=== PATIENT | female | born 1990 | race Caucasian/White ===

== ENCOUNTER 2018-04-12 10:29 | Day surgery (SDC) | payer OTHER ==
[2018-04-09 12:58] VITALS: BMI 48.9
--- NOTE | 2018-04-11 10:01 | HP ---
HISTORY AND PHYSICAL CHIEF COMPLAINT: Left hand pain and numbness. 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 It has worsened recently. She is having pain with gripping and grasping. She is having night symptoms. She has tried bracing in addition to injections and medications with partial temporary relief. PAST MEDICAL HISTORY: Negative. PAST SURGICAL HISTORY: Negative. CURRENT MEDICATIONS: Tylenol. FAMILY HISTORY: Significant for cancer. SOCIAL HISTORY: Negative for current tobacco or alcohol use. REVIEW OF SYSTEMS: Sixteen-point review of systems otherwise reviewed and is noncontributory. PHYSICAL EXAMINATION: On examination, the patient is approximately 5 feet 5 inches, 300 pounds of endomorphic habitus. HEENT exam is nonfocal. Neck is supple. She is nontender about the left shoulder and elbow. On examination of her left wrist, she has a positive Tinel's over the carpal canal. Carpal tunnel compression test is positive. Light touch is diminished in the left thumb, index and middle fingers. Abductor pollicis brevis strength is 5 minus over 5. No gross thenar wasting is noted. Previous EMG to left upper extremity showed evidence of carpal tunnel syndrome. IMPRESSION: Left carpal tunnel syndrome-symptomatic. RECOMMENDATIONS: I talked to the patient at length regarding her condition and treatment options. At this point, she opts to proceed with surgery. We will plan to proceed with a left carpal tunnel release. We will likely perform that utilizing local anesthetic and IV sedation. Risks and benefits were discussed at length in layman's terms. MMODL / IJN: [id number] /
[~2018-04-12 10:29] MED LIST: HYDROmorphone 0.5 MG/0.5 ML SYRINGE IVP PRN; LACTATED RINGERS 1,000 ML IV SCH; LIDOCAINE 1% 20 ML VIAL (10MG/ML) FOR IV START INTRADERMA PRN; ONDANSETRON 4 MG/2 ML VIAL IVP ONE
[2018-04-12 11:15] VITALS: TEMP 98.5
[2018-04-12] MEDS ORDERED: fentaNYL (PF) 50 MCG/ML 2 ML AMP ONE (11:56)
[2018-04-12] MEDS ORDERED: MIDAZOLAM 2 MG/2 ML VIAL ONE (11:56)
[2018-04-12] MEDS ORDERED: PROPOFOL 10 MG/ML 20 ML VIAL IV ONE (11:56)
[2018-04-12] MEDS ORDERED: LIDOCAINE 1% INJ 10MG/ML (20 ML MDV) ONE (11:56)
[2018-04-12] MEDS ORDERED: LIDOCAINE 2% (PF) 20 MG/ML 10 ML AMP SQ ONE (12:08)
--- NOTE | 2018-04-12 12:29 | P.OP ---
Date of Procedure: 04/12/18 Preoperative Diagnosis: Left carpal tunnel syndrome Postoperative Diagnosis: Same Procedure(s) Performed: Left carpal tunnel release Anesthesia: MAC, local Surgeon: Pollo Aguilar Estimated Blood Loss (ml): 2 Pathology: none sent Condition: stable Disposition: PACU Indications for Procedure: The patient's a 27-year-old female who presents with progressive left hand symptoms secondary to carpal tunnel syndrome despite conservative measures. A discussion of the risks and benefits of operative intervention versus continued conservative measures was made with the patient. She opted to proceed with surgery. Operative risks to include infection, neurovascular injury, recurrence of symptoms, possible development of reflex empathetic dystrophy and need for subsequent procedures was discussed. Informed consent was obtained. Operative Findings: As below Description of Procedure: The patient was brought to the operating room, and after induction of IV sedation the left upper extremity was prepped and draped in normal fashion. The tourniquet was inflated to 250 mmHg. The proposed incision site was outlined with a skin marker in line with the radial aspect the fourth ray extending from the volar wrist crease distally 2 and half centimeters. 8 mL of 2% plain lidocaine was injected into the proposed incision site. The skin was then incised sharply. Subcutaneous tissues were divided sharply. The superficial palmar fascia was identified and split in line with the skin incision. The transverse carpal ligament was identified and transected under direct visualization distally to level of the palmar fat pad. I felt there was adequate distal release. Proximally it was taken level the volar wrist crease. A plane above and below the transverse carpal ligament was then bluntly developed with tenotomies. The confluence of the distal forearmand the transverse carpal ligament was then transected under direct visualization with the tenotomy tines pointed in the ulnar direction. I felt there was adequate proximal release. Neural lysis was not performed. The wound is irrigated normal saline. The skin was reprepped with simple 3-0 nylon suture. A sterile dressing was applied. The tourniquet was deflated with approximately 15 minutes total tourniquet time. Blood loss was estimated 2 mL. No complications were incurred. Sponge and needle counts were correct at the end of the case.
[2018-04-12 12:54] VITALS: BP 108/50; PULSE 85; RESP 16
== END 2018-04-12 13:30 | disposition home or self-care (01) ==
LOC: OR 10:29
PROVIDERS: ATTEND Orthopaedic Surgery
DX: G56.02 Carpal tunnel syndrome, left upper limb (principal); Z88.0 Allergy status to penicillin; E66.01 Morbid (severe) obesity due to excess calories; Z79.891 Long term (current) use of opiate analgesic; Z68.42 Body mass index [BMI] 45.0-49.9, adult
CPT/HCPCS: 81025; 64721; J2250; J2001 ×2; J0690; J2405; J3010; J2704

== ENCOUNTER 2018-06-28 09:11 | Day surgery (SDC) | payer OTHER ==
[2018-06-25 14:30] VITALS: BMI 48.4
--- NOTE | 2018-06-27 12:57 | HP ---
HISTORY AND PHYSICAL CHIEF COMPLAINT: Right hand numbness. 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 She has had problems for quite some time. She notes pain with gripping and grasping along with at night. She has tried medications and bracing in the past. PAST MEDICAL HISTORY: Significant for bilateral carpal tunnel syndrome. PAST SURGICAL HISTORY: Significant for left carpal tunnel release. CURRENT MEDICATIONS: Tylenol. She has allergies to PENICILLIN. FAMILY HISTORY: Significant for hypertension. SOCIAL HISTORY: Negative for current tobacco or alcohol use. REVIEW OF SYSTEMS: A 16 point review of systems otherwise reviewed and is noncontributory. PHYSICAL EXAMINATION: On examination, the patient is approximately 5 foot 5, 300 pounds of endomorphic habitus. HEENT exam is nonfocal. NECK is supple. She is nontender about the right shoulder and elbow. On examination of the right wrist, she has a positive Tinel's of the carpal canal. Carpal tunnel compression test is positive. Abductor pollicis brevis strength is 5-5. Minimal thenar wasting is noted. IMPRESSION: 1. Symptomatic right carpal tunnel syndrome. 2. Increased body mass index. RECOMMENDATIONS: I talked to the patient regarding her condition and treatment options. At this point, she is quite symptomatic and opts to proceed with surgery. We will plan to proceed with right carpal tunnel release utilizing local anesthetic and IV sedation. We will likely perform an outpatient procedure. Risks and benefits were discussed at length in layman's terms. MMODL / IJN: [id number] /
[~2018-06-28 09:11] MED LIST changes: +DEXAMETHASONE SOD PHOSPHATE 10 MG/ML 1 ML VIAL IV ONE; -HYDROmorphone 0.5 MG/0.5 ML SYRINGE IVP PRN; +HYDROmorphone 1 MG/ML 1 ML SYRINGE IVP PRN; +MIDAZOLAM (PF) 2 MG/2 ML VIAL IV PRN; +fentaNYL (PF) 50 MCG/ML 2 ML AMP IV PRN
[2018-06-28 10:29] VITALS: TEMP 98.5
[2018-06-28] MEDS ORDERED: MIDAZOLAM 2 MG/2 ML VIAL ONE (10:58)
[2018-06-28] MEDS ORDERED: KETAMINE 10 MG/ML 20 ML VIAL ONE (10:58)
[2018-06-28] MEDS ORDERED: LIDOCAINE 1% INJ 10MG/ML (20 ML MDV) ONE (10:58)
[2018-06-28] MEDS ORDERED: PROPOFOL 10 MG/ML 20 ML VIAL IV ONE (10:58)
[2018-06-28] MEDS ORDERED: fentaNYL (PF) 50 MCG/ML 2 ML AMP ONE (10:58)
[2018-06-28] MEDS ORDERED: BUPIVACAINE (PF) 0.25% 30 ML VIAL SQ ONE ×2 (11:05)
--- NOTE | 2018-06-28 11:37 | P.OP ---
Date of Procedure: 06/28/18 Preoperative Diagnosis: Symptomatic right carpal tunnel syndrome Postoperative Diagnosis: Same Procedure(s) Performed: Right carpal tunnel release Anesthesia: MAC, local Surgeon: Pollo Aguilar Estimated Blood Loss (ml): 1 Pathology: none sent Condition: stable Disposition: PACU Indications for Procedure: The patient's a 27-year-old female who presents with progressive right hand pain and numbness secondary to carpal tunnel syndrome despite conservative measures. A discussion of the risks and benefits of operative intervention versus continued conservative measures was made with patient. She opted to proceed with surgery. Operative risks to include infection, neurovascular injury, development of blood clots, possible incomplete resolution of symptoms, possible recurrence of symptoms and need for subsequent procedures was discussed. Informed consent was obtained. Operative Findings: As below Description of Procedure: The patient was brought to the operating room, and after induction of IV sedation the right upper extremity was prepped and draped in normal fashion. The proposed incision site was outlined skin marker in line with the radial aspect the fourth ray extending from the volar wrist crease distally 2-1/2 cm. One quarter percent plain Marcaine was injected into the proposed incision site. 9 mL was utilized. The tourniquet was inflated to 250 mmHg. The skin incision was then made. The skin was incised sharply. Subcutaneous tissues were divided sharply the superficial palmar fascia was identified and split in line with the skin incision. The transverse carpal ligament was identified and transected under direct visualization distally to level the palmar fat pad. Proximal was taken level of the volar wrist crease. A plane above and below the transverse carpal ligament was then bluntly developed with tenotomies. The confluence of the distal forearm fascia and the transverse carpal ligament was then transected under direct visualization proximally with the tines pointed in the ulnar direction. I felt this was adequate proximal release. Neural lysis was not performed. The wound was irrigated with normal saline. Electrocautery was used for hemostasis. The skin was reapproximated with simple 3-0 nylon sutures. A sterile dressing was applied. The tourniquet was deflated with less than 15 minutes total tourniquet time. Patient was awoken from sedation and transferred to the recovery room in good condition. Blood loss was estimated 1 mL. No complications were incurred. Sponge and needle counts were correct at the end the case.
[2018-06-28 11:51] VITALS: RESP 16
[2018-06-28 12:41] VITALS: BP 128/78; PULSE 80
== END 2018-06-28 12:42 | disposition home or self-care (01) ==
LOC: OR 09:11
PROVIDERS: ATTEND Orthopaedic Surgery
DX: G56.01 Carpal tunnel syndrome, right upper limb (principal); E66.01 Morbid (severe) obesity due to excess calories; Z68.42 Body mass index [BMI] 45.0-49.9, adult; Z88.0 Allergy status to penicillin; Z79.899 Other long term (current) drug therapy
CPT/HCPCS: 64721; 81025; J2250; J1100; J2405; J2001; J3010; J2704; 64415

== ENCOUNTER 2023-06-05 19:40 | Inpatient (IN) | payer OTHER ==
--- NOTE | 2023-06-05 20:00 | ED ---
SOB HPI - General Chief Complaint: Shortness of Breath Stated Complaint: Pulmonary embolisms Time Seen by Provider: 06/05/23 19:43 Source: patient, EMS, RN notes reviewed Mode of arrival: EMS Limitations: no limitations - History of Present Illness Initial Comments: Patient is a 32-year-old female presenting to the ER via EMS transferred from [place] with a chief complaint of bilateral PEs. Patient was recently hospitalized for hypoxia and cough on 05/31/23. She left AMA after due to having to take care of her children. She has been recently treated with antibiotics for cough with no improvement. Patient was seen today at her PCPs office for follow- up and was found to be hypoxic stating in the low 90s to high 80s. Chest xray done at PCPs office was completed and patient was sent to ER based on results. Patient was sent to the ER and [place] for evaluation. Patient states that she was having right sided back pain, cough and shortness of breath with exertion. CTA obtained at [place] shows bilateral pulmonary embolisms. Patient received heparin bolus and drip was started for transfer to [facility]. Currently, patient is reporting right-sided back pain, cough and mild shortness of breath. Patient denies control, history of DVTs, smoking. En route EMS states she was standing around 94 on 3 L. - Related Data Previous Rx's Medication Instructions Recorded Acetaminophen with Codeine 1 tab PO Q6H PRN 4 Days #16 tab 04/12/18 [Tylenol w/codeine #3] Acetaminophen-Codeine 300-30mg 1 tab PO Q6H PRN 3 Days #12 tablet 06/28/18 [Tylenol w/codeine #3] Allergies Allergy/AdvReac Type Severity Reaction Status Date / Time Penicillins Allergy Rash/Hives Verified 06/28/18 10:24 Review of Systems ROS Statement: Those systems with pertinent positive or pertinent negative responses have been documented in the HPI. ROS Other: All systems not noted in ROS Statement are negative. Past Medical History Past Medical History: Skin Disorder Additional Past Medical History / Comment(s): PCOS-IRREGULAR MENSES, darker pigment in areas of skin, bilat PE History of Any Multi-Drug Resistant Organisms: None Reported Past Surgical History: Orthopedic Surgery Additional Past Surgical History / Comment(s): left carpal tunnel 03/2018 Past Anesthesia/Blood Transfusion Reactions: No Reported Reaction Additional Past Anesthesia/Blood Transfusion Reaction / Comment(s): NO PRIOR SURGICAL HX Past Psychological History: No Psychological Hx Reported Past Alcohol Use History: None Reported Past Drug Use History: None Reported - Past Family History Mother Family Medical History: No Reported History General Exam Limitations: no limitations General appearance: alert, in no apparent distress Head exam: Present: atraumatic, normocephalic, normal inspection Respiratory exam: Present: wheezes (Bilaterally), rhonchi (Bilaterally) Cardiovascular Exam: Present: regular rate, normal rhythm, normal heart sounds. Absent: systolic murmur, diastolic murmur, rubs, gallop, clicks Extremities exam: Present: normal inspection, full ROM, normal capillary refill. Absent: tenderness, pedal edema, joint swelling, calf tenderness Neurological exam: Present: alert, oriented X3, CN II-XII intact Psychiatric exam: Present: normal affect, normal mood Skin exam: Present: warm, dry, intact, normal color. Absent: rash Course Vital Signs 06/05/23 19:47 Temperature 98.1 F Pulse Rate 99 Respiratory 16 Rate Blood Pressure 187/103 O2 Sat by Pulse 94 L Oximetry Medical Decision Making - Medical Decision Making Was pt. sent in by a medical professional or institution (, PA, CUSTODY ASSISTANT, urgent care, hospital, or [facility]...) When possible be specific @ -[facility] Did you speak to anyone other than the patient for history (EMS, parent, family, police, friend...)? What history was obtained from this source @ -EMS and family Did you review nursing and triage notes (agree or disagree)? Why? @ -I reviewed and agree with nursing and triage notes Were old charts reviewed (outside hosp., previous admission, EMS record, old EKG, old radiological studies, urgent care reports/EKG's, [facility] records)? Report findings @ -Yes, I reviewed charts from [facility]. CTA of significant for bilateral pulmonary embolisms and multiple bilateral opacities. Patient received heparin bolus and started on heparin drip for transfer. Differential Diagnosis (chest pain, altered mental status, abdominal pain women, abdominal pain men, vaginal bleeding, weakness, fever, dyspnea, syncope, headache, dizziness, GI bleed, back pain, seizure, CVA, palpatations, mental health, musculoskeletal)? @ -Differential Dyspnea: Coronary syndrome, arrhythmia, tamponade, asthma, COPD, pulmonary embolism, pneumonia, pneumothorax, pulmonary effusion, anaphylaxis, diabetic ketoacidosis, flailed chest, pulmonary contusion, diaphragmatic rupture, anemia, neuromuscular, this is not meant to be an all- inclusive list. le EKG interpreted by me (3pts min.). @ -As above X-rays interpreted by me (1pt min.). @ -None done CT interpreted by me (1pt min.). @ -None done U/S interpreted by me (1pt. min.). @ -None done What testing was considered but not performed or refused? (CT, X-rays, U/S, labs)? Why? @ -None What meds were considered but not given or refused? Why? @ -None Did you discuss the management of the patient with other professionals (professionals i.e. , PA, CUSTODY ASSISTANT, lab, RT, psych nurse, 7th grade social studies teacher, event marketing intern, teacher, disability insurance hearing officer, housing case manager)? Give summary @ -Yes, I discussed this case with Gilson Woods from [facility] for admission. Was smoking cessation discussed for >3mins.? @ -No Was critical care preformed (if so, how long)? @ -No Were there social determinants of health that impacted care today? How? (Homelessness, low income, unemployed, alcoholism, drug addiction, tr ansportation, low edu. Level, literacy, decrease access to med. care, detention, rehab)? @ -No Was there de-escalation of care discussed even if they declined (Discuss DNR or withdrawal of care, Hospice)? DNR status @ -No What co-morbidities impacted this encounter? (DM, HTN, Smoking, COPD, CAD, Cancer, CVA, ARF, Chemo, Hep., AIDS, mental health diagnosis, sleep apnea, morbid obesity)? @ -morbid obesity and diabetes mellitus Was patient admitted / discharged? Hospital course, mention meds given and route, prescriptions, significant lab abnormalities, going to OR and other pertinent info. @ -Admitted. Patient was transferred from [facility] with complaint of bilateral pulmonary embolisms. Patient was admitted for hypoxia and severe cough on 05/31/23. Patient left AMA the next day due to personal reasons. Patient's follow-up to primary care physician was today and chest x-ray obtained in the office was worrisome so patient was sent to [place] ER fro evaluation. CTA taken at [place] was significant for bilateral pulmonary embolisms and multiple opacities. Patient received heparin bolus prior to transfer and started on heparin drip for transfer. Upon examination, patient is satting 94% on 3 L and BP was 187/103. Auscultation of lungs was significant for bilateral wheezing and rhonchi. Patient reports right sided back pain that increases with exertion. Upon arrival here patient was restarted on heparin drip and given 20mg of labetalol for BP control. I spoke with [facility] for admission and consulted pulmonary. Patient will be admitted for further care. Undiagnosed new problem with uncertain prognosis? @ -Yes Drug Therapy requiring intensive monitoring for toxicity (Heparin, Nitro, Insulin, Cardizem)? @ -Yes Were any procedures done? @ -No Diagnosis/symptom? @ -Bilateral pulmonary embolism Acute, or Chronic, or Acute on Chronic? @ -Acute Uncomplicated (without systemic symptoms) or Complicated (systemic symptoms)? @ -Complicated Side effects of treatment? @ -No Exacerbation, Progression, or Severe Exacerbation? @ -No Poses a threat to life or bodily function? How? (Chest pain, [place], [place], pneumonia, PE, COPD, DKA, ARF, appy, cholecystitis, CVA, Diverticulitis, Homicidal, Suicidal, threat to staff... and all critical care pts) @ -Yes, pulmonary embolism can be life threatening. Disposition Clinical Impression: Pulmonary embolism Disposition: ADMITTED IP TO THIS HOSP Condition: Stable Referrals: Eduard Kinsey MD [Primary Care Provider] - 1-2 days Time of Disposition: 20:51
[2023-06-05] MEDS ORDERED: HEPARIN SODIUM 1,000 UN/ML (10ML VL) IV PRN (20:10)
[2023-06-05] MEDS ORDERED: LABETALOL 5 MG/ML VIAL MDV IVP STA (20:12)
[2023-06-05] MEDS ORDERED: HYDROmorphone 0.5 MG/0.5 ML SYRINGE IVP PRN (20:24)
[2023-06-05] MEDS ORDERED: NALOXONE 0.4 MG/ML 1 ML VIAL IV PRN (20:24)
[2023-06-05] MEDS ORDERED: ONDANSETRON 4 MG/2 ML VIAL IVP PRN (20:24)
[2023-06-05] MEDS: SODIUM CHLORIDE 0.9% 1,000 ML IV SCH (20:52)
[2023-06-05] MEDS: HEPARIN SOD,PORK IN 0.45% NACL 25,000 UNIT in 0.45% NACL 1 250ML.BAG IV SCH (20:53)
[2023-06-05 21:14] LABS: INR 1.1 (<1.2); Prothrombin Time 11.6 sec (10.0-12.5)
--- NOTE | 2023-06-06 03:12 | P.CNPUL ---
History of Present Illness Consult date: 06/06/23 Requesting physician: Rukhsana Franco Reason for consult: pulmonary embolism Chief complaint: shortness of breath and right-sided back pain History of present illness: I am seeing this patient in consultation today 06/06/2023 in the emergency room after the patient was found to have bilateral pulmonary emboli at outside facility and transferred for treatment. Patient is a 32-year-old white female with limited past medical history. She is morbidly obese. Denies any previous personal history of blood clots Only familial history was her grandfather who may have had a DVT. She does not take any oral contraceptives. She does not smoke. No recent trauma, surgery, or prolonged travel. No known malignancy. She is fairly active, she has five children. States that she is not currently . Reports that the shortness of breath started approximately 2 weeks ago. It is worse with exertion or lying flat. She also admits right pleurtic back pain and left leg "cramping". Left foot may have been swollen. She does report a minimally productive cough and low grade fevers. Denies hemoptysis. She did go to a urgent care clinic on May 27, and was diagnosed with acute bronchitis. she was also seen multiple times in the emergency room at outside facility for shortness of breath. Yesterday, she was following up with her primary care provider, was found to be hypoxic, and she was sent back to the emergency room. A CT angio of the chest demonstrated multiple bilateral segmental and subsegmental pulmonary emboli. There were also multiple bilateral pulmonary opacities with lower lobe predominance concerning for possible infarcts/christie hump sign or atelectasis. No CT evidence of right heart strain. BNP not elevated. CBC done at outside facility showed a white count of 16.2, hem oglobin 14.6, hematocrit 45.2, platelets 290. BMP shows sodium 138, potassium 3.5, chloride 101, serum bicarb 25, BUN 15, creatinine 0.8, glucose 94. Patient is currently lying in bed, on 4 L per nasal cannula, in no acute distress while at rest. High-intensity heparin is infusing per protocol. No sign of hemodynamic compromise. Heart rhythm appears normal sinus on bedside monitor with a rate of 70 bpm. Blood pressure is normotensive. Patient will be admitted to the cardiac stepdown unit. Review of Systems REVIEW OF SYSTEMS: CONSTITUTIONAL: Denies any recent significant weight loss or weight gain. EYES: Denies change in vision. EARS, NOSE, MOUTH, THROAT: Denies headaches, denies sore throat. CARDIOVASCULAR: Denies chest pain, palpitations or syncopal episodes. RESPIRATORY: see HPI GASTROINTESTINAL: Denies change in appetite, abdominal pain, nausea and vomiting, or diarrhea GENITOURINARY: Denies hematuria, denies infections. MUSKULOSKELETAL: admits left lower extremity cramping and foot swelling. INTEGUMENTARY: Denies rash, denies eczema. NEUROLOGICAL: Denies recent memory loss, no recent seizure activity. PSYCHIATRIC: Denies anxiety, denies depression. HEMATOLOGIC/LYMPHATIC: Denies anemia, denies enlarged lymph node Past Medical History Past Medical History: Skin Disorder Additional Past Medical History / Comment(s): PCOS-IRREGULAR MENSES, darker pigment in areas of skin, bilat PE History of Any Multi-Drug Resistant Organisms: None Reported Past Surgical History: Orthopedic Surgery Additional Past Surgical History / Comment(s): left carpal tunnel 03/2018 Past Anesthesia/Blood Transfusion Reactions: No Reported Reaction Additional Past Anesthesia/Blood Transfusion Reaction / Comment(s): NO PRIOR SURGICAL HX Past Psychological History: No Psychological Hx Reported Past Alcohol Use History: None Reported Past Drug Use History: None Reported - Past Family History Mother Family Medical History: No Reported History Medications and Allergies Home Medications Medication Instructions Recorded Confirmed Type Albuterol Inhaler [Ventolin Hfa 1 - 2 puff INHALATION RT-Q6H PRN 06/05/23 06/05/23 History Inhaler] Albuterol Nebulized [Ventolin 2.5 mg INHALATION RT-TID 06/05/23 06/05/23 History Nebulized] Benzonatate [Tessalon Perles] 100 - 200 mg PO TID PRN 06/05/23 06/05/23 History guaiFENesin [Mucinex] 600 mg PO Q12H PRN 06/05/23 06/05/23 History methylPREDNISolone Dose Pack See Taper PO DIRECTED 06/05/23 06/05/23 History [Medrol Dose Pack] Allergies Allergy/AdvReac Type Severity Reaction Status Date / Time azithromycin Allergy rash, hives Verified 06/05/23 23:54 Penicillins Allergy Rash/Hives Verified 06/05/23 23:54 Physical Exam Vitals: Vital Signs Temp Pulse Resp BP Pulse Ox 06/06/23 00:20 71 16 136/85 94 L 06/05/23 23:00 77 16 145/76 94 L 06/05/23 22:00 80 16 165/90 94 L 06/05/23 20:50 73 16 157/87 94 L 06/05/23 19:47 98.1 F 99 16 187/103 94 L Intake and Output 06/05/23 06/05/23 06/06/23 14:59 22:59 06:59 Other: Weight 151.046 kg GENERAL EXAM: Alert, morbidly obese 32-year-old white female , comfortable in no apparent distress. HEAD: Normocephalic and atraumatic EYES: Normal reaction of pupils, equal size. NOSE: Clear with pink turbinates. THROAT: No erythema or exudates. NECK: No masses, no JVD. CHEST: No chest wall deformity. LUNGS: Equal air entry with no crackles, wheeze, rhonchi or dullness. on 4 L/m nasal cannula. No conversational dyspnea or accessory muscle use while at rest CVS: S1 and S2 normal with no audible murmur, regular rhythm. No extra heart sounds ABDOMEN: No hepatosplenomegaly, active bowel sounds, no guarding or rigidity. SPINE: No scoliosis or deformity SKIN: No rashes CENTRAL NERVOUS SYSTEM: No focal deficits, tone is normal in all 4 extremities. EXTREMITIES: There is no peripheral edema, clubbing, or cyanosis. Peripheral pulses are intact. Results - Laboratory Findings PT/INR, D-dimer PT 11.6 sec (10.0-12.5) 06/05/23 20:46 INR 1.1 (<1.2) 06/05/23 20:46 - Diagnostic Findings CT scan - chest: image reviewed Assessment and Plan Assessment: Bilateral acute segmental and subsegmental pulmonary emboli, first occurrence, non-provoked, no CT evidence of right-sided heart strain. On chest CTA, there were multiple bilateral opacities with lower lobe predominance concerning for possible pulmonary infarcts/christie hump sign. Acute hypoxemic respiratory failure, secondary to above Hypertension Morbid obesity, with a BMI of 53.7 kg/m plan: Patient's medications, labs, chest CTA from outside facility were reviewed Continue supplemental oxygen, currently on 4 L/m nasal cannula Currently, on high intensity heparin per protocol and will likely transition to DOAC in the morning. Will need anticoagulation for at least 3-[address] evidence of right-sided heart strain or hemodynamic compromise Obtain venous doppler of the lower extremities We will continue to follow I have personally seen and examined the patient, performed the documentation and the assessment and plan as written. Number of minutes spent on the visit:20 Time with Patient: Greater than 30
[2023-06-06 04:04] LABS: Basophils % (A) 0 %; Eosinophils % (A) 0 %; HCT 43.7 % (34.0-46.0); HGB 14.1 gm/dL (11.4-16.0); Lymphocytes % (A) 20 %; MCH 26.1 pg (25.0-35.0); MCHC 32.4 g/dL (31.0-37.0); MCV 80.6 fL (80.0-100.0); Mean Platelet Volume 8.3; Monocytes # (A) 0.8 k/uL (0-1.0); Monocytes % (A) 5 %; Neutrophils # (A) 11.1 k/uL (1.3-7.7); Neutrophils % (A) 73 %; Platelet Count 297 k/uL (150-450); RBC 5.42 m/uL (3.80-5.40); RDW 13.8 % (11.5-15.5); WBC 15.3 k/uL (3.8-10.6)
[2023-06-06] MEDS: HEPARIN SOD,PORK IN 0.45% NACL 25,000 UNIT in 0.45% NACL 1 250ML.BAG IV SCH ×2 (06:34→15:36)
[2023-06-06 06:35] LABS: African American GFR (CKD) >90 (>60 ml/min/1.73 sqM); Anion Gap 10 mmol/L; Blood Urea Nitrogen 14 mg/dL (7-17); Carbon Dioxide 25 mmol/L (22-30); Chloride 104 mmol/L (98-107); Glucose 120 mg/dL (74-99); Non-African American GFR(CKD) >90 (>60 ml/min/1.73 sqM); Potassium 4.1 mmol/L (3.5-5.1); Sodium 139 mmol/L (137-145)
[2023-06-06] MEDS ORDERED: ALBUTEROL HFA INHALER INHALATION PRN (08:58)
[2023-06-06] MEDS ORDERED: guaiFENesin 600 MG TABLET.ER PO PRN (08:58)
[2023-06-06] MEDS ORDERED: hydrALAZINE HCL 20 MG/ML 1 ML VIAL IVP PRN (08:59)
--- NOTE | 2023-06-06 09:11 | US ---
EXAMINATION TYPE: US venous doppler duplex LE LT DATE OF EXAM: 06/06/2023 8:51 AM COMPARISON: NONE CLINICAL INDICATION: Female, 32 years old with history of LLE pain edema; Pain and edema in left leg x a couple days. PE. Patient is on heparin. SIDE PERFORMED: Left TECHNIQUE: The lower extremity deep venous system is examined utilizing real time linear array sonog brynn with graded compression, doppler sonography and color-flow sonography. VESSELS IMAGED: Deep Femoral Vein Greater Saphenous Vein * Femoral Vein Popliteal Vein Small Saphenous Vein * Proximal Calf Veins (* superficial vessels) Stogie Packer notes:Extremely limited exam due to patient body habitus and edema. Additional imaging of left femoral vein and deep femoral vein performed at end of exam when patient turned on right side for better visibility of these particular vessels. Left Leg: Positive for DVT. Internal echoes seen within popliteal vein and prox calf veins. Color flow not seen at these segments. These veins do not appear to compress. IMPRESSION: There appears to be occlusive DVT (suggesting acute thrombosis) involving the popliteal v ein and upper calf veins in the left lower extremity. Clinically correlate.
[2023-06-06] MEDS: amLODIPine 5 MG TAB PO SCH (09:25)
[2023-06-06] MEDS: SODIUM CHLORIDE 0.9% 1,000 ML IV SCH (11:38)
[2023-06-06] MEDS: ALBUTEROL NEBULIZED 2.5 MG/3 ML INHALATION SCH ×2 (12:41→20:53)
--- NOTE | 2023-06-06 13:18 | P.HPIM ---
History of Present Illness H&P Date: 06/06/23 History of present illness; patient is a 32-year-old lady with past medical history significant for hypertension who presented to the ER as a transfer from [facility] for evaluation for bilateral PE. Patient was admitted in the hospital recently for cough and shortness of breath, but left AMA because of family issues. Patient was discharged on antibiotics but was having no improvement. Patient stated that shortness of breath is going on for the last 2 weeks and is present exertion and at rest. Denied any chest pain. There was no complain of palpitation. Patient also complaining of right-sided back pain. Patient also stated that she did notice that her left leg was swollen Patient went to her PCP office where she was found to be saturating in the low 90s and high 80s and was told to come to the ER. Patient was sent from [facility]. A CT angio of the chest demonstrated multiple bilateral segmental and subsegmental pulmonary emboli. There were also multiple bilateral pulmonary opacities with lower lobe predominance concerning for possible infarcts/christie hump sign or atelectasis. No CT evidence of right heart strain. BNP not elevated. Patient was started on pharmacy dose heparin and was transferred to [facility] Initial lab work done in the ER showed WBC 15.3, hemoglobin 14.1, platelet count 297, sodium 139, potassium 4.1, BUNs 14, creatinine 0.63, glucose 120, troponin 0.012 Patient was admitted to medicine service REVIEW OF SYSTEMS: CONSTITUTIONAL: No fever, no malaise, no fatigue. HEENT: No recent visual problems or hearing problems. Denied any sore throat. CARDIOVASCULAR: As mentioned above PULMONARY: As mentioned above GASTROINTESTINAL: No diarrhea, no nausea, no vomiting, no abdominal pain. NEUROLOGICAL: No headaches, no weakness, no numbness. HEMATOLOGICAL: Denies any bleeding or petechiae. GENITOURINARY: Denies any burning micturition, frequency, or urgency. MUSCULOSKELETAL/RHEUMATOLOGICAL: Denies any joint pain, swelling, or any muscle pain. ENDOCRINE: Denies any polyuria or polydipsia. The rest of the 14-point review of systems is negative. PHYSICAL EXAMINATION: GENERAL: The patient is alert and oriented x3, not in any acute distress. Morbidly obese HEENT: Pupils are round and equally reacting to light. EOMI. No scleral icterus. No conjunctival pallor. Normocephalic, atraumatic. No pharyngeal erythema. No thyromegaly. CARDIOVASCULAR: S1 and S2 present. No murmurs, rubs, or gallops. PULMONARY: Diminished breath sounds at bases bilaterally, no wheezing or crackles. ABDOMEN: Soft, nontender, nondistended, normoactive bowel sounds. No palpable organomegaly. MUSCULOSKELETAL: No joint swelling or deformity. EXTREMITIES: No cyanosis, clubbing, or pedal edema. NEUROLOGICAL: Gross neurological examination did not reveal any focal deficits. SKIN: No rashes. Assessment and plan Acute bilateral PE Bilateral pulmonary infarct Left lower extremity DVT Acute hypoxic respiratory failure Hypertension Morbid obesity Monitor vital signs Monitor CBC Monitor CMP Continue telemetry monitoring Encourage use of I-S Continue breathing treatments Continue pharmacy dose heparin Start patient Norvasc 5 mg daily for elevated blood pressure Ordered 2-D echo Ordering ultrasound of lower extremities Consult pulmonology Consult hematology oncology Labs and medication were reviewed.. Continue same treatment. Continue with symptomatic treatment. Resume home medication. Monitor labs and vitals. DVT and GI prophylaxis. Further recommendations as per clinical course of the patient Dictation was produced using [employer] dictation software. please excuse any grammatical, word or spelling errors. Past Medical History Past Medical History: Skin Disorder Additional Past Medical History / Comment(s): PCOS-IRREGULAR MENSES, darker pigment in areas of skin, bilat PE History of Any Multi-Drug Resistant Organisms: None Reported Past Surgical History: Orthopedic Surgery Additional Past Surgical History / Comment(s): left carpal tunnel 03/2018 Past Anesthesia/Blood Transfusion Reactions: No Reported Reaction Additional Past Anesthesia/Blood Transfusion Reaction / Comment(s): NO PRIOR SURGICAL HX Past Psychological History: No Psychological Hx Reported Past Alcohol Use History: None Reported Past Drug Use History: None Reported - Past Family History Mother Family Medical History: No Reported History Medications and Allergies Home Medications Medication Instructions Recorded Confirmed Type Albuterol Inhaler [Ventolin Hfa 1 - 2 puff INHALATION RT-Q6H PRN 06/05/23 06/05/23 History Inhaler] Albuterol Nebulized [Ventolin 2.5 mg INHALATION RT-TID 06/05/23 06/05/23 History Nebulized] Benzonatate [Tessalon Perles] 100 - 200 mg PO TID PRN 06/05/23 06/05/23 History guaiFENesin [Mucinex] 600 mg PO Q12H PRN 06/05/23 06/05/23 History methylPREDNISolone Dose Pack See Taper PO DIRECTED 06/05/23 06/05/23 History [Medrol Dose Pack] Allergies Allergy/AdvReac Type Severity Reaction Status Date / Time azithromycin Allergy rash, hives Verified 06/05/23 23:54 Penicillins Allergy Rash/Hives Verified 06/05/23 23:54 Physical Exam Vitals: Vital Signs Temp Pulse Resp BP Pulse Ox 06/06/23 07:27 77 20 172/102 94 L 06/06/23 06:36 97.8 F 79 16 161/86 95 06/06/23 04:18 68 14 169/97 94 L 06/06/23 02:52 80 164/94 94 L 06/06/23 00:20 71 16 136/85 94 L 06/05/23 23:00 77 16 145/76 94 L 06/05/23 22:00 80 16 165/90 94 L 06/05/23 20:50 73 16 157/87 94 L 06/05/23 19:47 98.1 F 99 16 187/103 94 L Intake and Output 06/05/23 06/06/23 06/06/23 22:59 06:59 14:59 Intake Total 222.717 Balance 222.717 Intake: Intake, IV Titration 222.717 Amount Heparin Sod,Pork in 0.45% 222.717 NaCl 25,000 unit In 0.45 % NaCl 1 250ml.bag @ 15. 227 UNITS/KG/HR 23 mls/hr IV .[id number] [facility] Rx#: [id number] Other: Weight 151.046 kg Results CBC & Chem 7: 06/06/23 02:47 06/06/23 02:43 Labs: Abnormal Lab Results - Last 24 Hours (Table) 06/06/23 06/06/23 06/06/23 Range/Units 02:43 02:47 02:47 WBC 15.3 H (3.8-10.6) k/uL RBC 5.42 H (3.80-5.40) m/uL Neutrophils # 11.1 H (1.3-7.7) k/uL APTT 74.3 H (22.0-30.0) sec Glucose 120 H (74-99) mg/dL
--- NOTE | 2023-06-06 15:16 | US ---
EXAMINATION TYPE: US venous doppler duplex LE RT DATE OF EXAM: 06/06/2023 1:59 PM COMPARISON: NONE CLINICAL INDICATION: Female, 32 years old with history of Matthew PE, LLE DVT, baseline; PE, DVT left leg , no issues with right leg SIDE PERFORMED: right TECHNIQUE: The lower extremity deep venous system is examined utilizing real time linear array sonog brynn with graded compression, doppler sonography and color-flow sonography. VESSELS IMAGED: Common Femoral Vein Deep Femoral Vein Greater Saphenous Vein * Femoral Vein Popliteal Vein Small Saphenous Vein * Proximal Calf Veins (* superficial vessels) Right Leg: Managing Consultant notes: No evidence of DVT as visualized. Superficial thrombus right small saph enous vein. Technical limitations due to patient's body habitus IMPRESSION: 1. Exam positive for SVT involving the small saphenous vein. 2. No evidence for DVT within the right lower extremity imaged from the groin to the upper calf.
--- NOTE | 2023-06-06 16:05 | P.CONS ---
History of Present Illness - Reason for Consult Consult date: 06/06/23 Bilateral PE, left lower extremity DVT - History of Present Illness The patient is a 32-year-old white female, with presented to an outside hospital, with complains of shortness of breath over the past 7-9 days. The patient states that symptoms in this regard had been progressive over that time to where she was having difficulty with even walking short distances inside the house. She was found to have bilateral PE, and was transferred here for further care. She was started on IV heparin and reports improvement in her symptoms. Left lower extremity Dopplers showed DVT involving the popliteal and upper calf veins The patient denied any prior history of arterial or venous ecchymosis. She states that a grandparent has a history of blood clots. She denied any surgery, hospitalization, trauma, or prolonged immobility in the prior 3-4 months. She is not on any hormonal contraception does not use any hormone supplements. She denies any chronic inflammatory condition, or any significant steroid use. She has never been , but has 5 adopted children. Apparently she may have PCO S. The patient is morbidly obese, with states that she has a normal activity level prior to the onset of her current symptoms. Review of Systems Constitutional: Reports weakness Eyes: denies blurred vision, denies pain Ears: deny: decreased hearing, ear discharge, earache, tinnitus Ears, nose, mouth and throat: Denies headache, Denies sore throat Cardiovascular: Reports shortness of breath Respiratory: Reports dyspnea Gastrointestinal: Denies abdominal pain, Denies diarrhea, Denies nausea, Denies vomiting Genitourinary: Denies dysuria, Denies hematuria Menstruation: Reports cycle variable (cycles very irregular and infrequent.) Musculoskeletal: Reports as per HPI (Left lower extremity pain and cramping) Integumentary: Denies pruritus, Denies rash Neurological: Denies numbness, Denies weakness Psychiatric: Denies anxiety, Denies depression Endocrine: Reports as per HPI Hematologic/Lymphatic: Reports as per HPI Past Medical History Past Medical History: Skin Disorder Additional Past Medical History / Comment(s): PCOS-IRREGULAR MENSES, darker pigment in areas of skin, bilat PE History of Any Multi-Drug Resistant Organisms: None Reported Past Surgical History: Orthopedic Surgery Additional Past Surgical History / Comment(s): left and right carpal tunnel 03/2018 Past Anesthesia/Blood Transfusion Reactions: No Reported Reaction Additional Past Anesthesia/Blood Transfusion Reaction / Comm: NO PRIOR SURGICAL HX Past Psychological History: No Psychological Hx Reported Smoking Status: Never smoker Past Alcohol Use History: None Reported Past Drug Use History: None Reported - Past Family History Mother Family Medical History: No Reported History Medications and Allergies Home Medications Medication Instructions Recorded Confirmed Type Albuterol Inhaler [Ventolin Hfa 1 - 2 puff INHALATION RT-Q6H PRN 06/05/23 History Inhaler] Albuterol Nebulized [Ventolin 2.5 mg INHALATION RT-TID 06/05/23 06/05/23 History Nebulized] Benzonatate [Tessalon Perles] 100 - 200 mg PO TID PRN 06/05/23 06/05/23 History guaiFENesin [Mucinex] 600 mg PO Q12H PRN 06/05/23 06/05/23 History methylPREDNISolone Dose Pack See Taper PO DIRECTED 06/05/23 06/05/23 History [Medrol Dose Pack] Allergies Allergy/AdvReac Type Severity Reaction Status Date / Time azithromycin Allergy rash, hives Verified 06/05/23 23:54 Penicillins Allergy Rash/Hives Verified 06/05/23 23:54 Physical Exam Vitals: Vital Signs Temp Pulse Pulse Resp BP BP Pulse Ox 06/06/23 15:53 97.8 F 83 20 142/86 95 06/06/23 12:53 90 06/06/23 12:44 80 06/06/23 07:27 77 20 172/102 94 L 06/06/23 06:36 97.8 F 79 16 161/86 95 06/06/23 04:18 68 14 169/97 94 L 06/06/23 02:52 80 164/94 94 L 06/06/23 00:20 71 16 136/85 94 L 06/05/23 23:00 77 16 145/76 94 L 06/05/23 22:00 80 16 165/90 94 L 06/05/23 20:50 73 16 157/87 94 L 06/05/23 19:47 98.1 F 99 16 187/103 94 L Intake and Output 06/06/23 06/06/23 06/06/23 06:59 14:59 22:59 Intake Total 222.717 207.767 Balance 222.717 207.767 Intake: Intake, IV Titration 222.717 207.767 Amount Heparin Sod,Pork in 0.45% 222.717 207.767 NaCl 25,000 unit In 0.45 % NaCl 1 250ml.bag @ 15. 227 UNITS/KG/HR 23 mls/hr IV .[id number] [facility] Rx#: [id number] Other: Weight 151.046 kg - Constitutional General appearance: morbidly obese, no acute distress - EENT Eyes: EOMI, PERRLA ENT: hearing grossly normal, normal oropharynx - Neck Neck: no lymphadenopathy Thyroid: bilateral: normal size - Respiratory Respiratory: bilateral: CTA - Cardiovascular Rhythm: regular Heart sounds: normal: S1, S2 - Gastrointestinal General gastrointestinal: normal bowel sounds, soft - Integumentary Integumentary: normal - Neurologic Neurologic: CNII-XII intact - Musculoskeletal Musculoskeletal: generalized weakness, strength equal bilaterally - Psychiatric Psychiatric: A&O x's 3, appropriate affect Results CBC & Chem 7: 06/06/23 02:47 06/06/23 02:43 Labs: Abnormal Lab Results - Last 24 Hours (Table) 06/06/23 06/06/23 06/06/23 Range/Units 02:43 02:47 02:47 WBC 15.3 H (3.8-10.6) k/uL RBC 5.42 H (3.80-5.40) m/uL Neutrophils # 11.1 H (1.3-7.7) k/uL APTT 74.3 H (22.0-30.0) sec Glucose 120 H (74-99) mg/dL CT scan - chest: report reviewed Venous US: report reviewed Assessment and Plan (1) Pulmonary embolism Narrative/Plan: The patient is pending with bilateral pulmonary embolism, from a left lower extremity DVT. Symptoms have already improved partially since starting IV heparin. -Possible Etiologies were discussed with her and her family in detail. The patient does have PCO S apparently, which can increase the risk of venous, more resume by 1.5-2, compared to the normal population. Otherwise they do not appear to be any obvious provoking factors. - Given that this appears to be in the unprovoked clot, with no transient risk factors( even if the PCO S is contributing), she would be recommended indefinite anticoagulation, as long as there are no tolerance issues - Agree with IV heparin in the acute setting. She can be switched over to DOAC and stable, as long as this is covered for her. This would be much more convenient option for treatment compared to warfarin, given that long-term anticoagulation is recommended. - Check Dopplers of the right lower extremity for baseline - Given possible family history, and relatively unprovoked clot it would be reasonable to do a hypercoagulable workup. She was advised that the results were likely not affect her management but may have implications for her family. This will be done as an outpatient. Current Visit: Yes Status: Acute Code(s): I26.99 - OTHER PULMONARY EMBOLISM WITHOUT ACUTE COR PULMONALE SNOMED Code(s): 24573394 Plan: Defer to the admitting service and other consultants for management of her other medical issues.
[2023-06-07] MEDS: HEPARIN SOD,PORK IN 0.45% NACL 25,000 UNIT in 0.45% NACL 1 250ML.BAG IV SCH (02:24)
[2023-06-07] MEDS: ALBUTEROL NEBULIZED 2.5 MG/3 ML INHALATION SCH ×3 (08:29→19:49)
[2023-06-07] MEDS: Apixaban Initiation Dose--VTE 5 MG TAB PO SCH ×2 (09:50→20:12)
[2023-06-07] MEDS: amLODIPine 5 MG TAB PO SCH (09:50)
--- NOTE | 2023-06-07 12:28 | P.PN ---
Subjective Progress Note Date: 06/07/23 I am seeing this patient in consultation today 06/06/2023 in the emergency room after the patient was found to have bilateral pulmonary emboli at outside facility and transferred for treatment. Patient is a 32-year-old white female with limited past medical history. She is morbidly obese. Denies any previous personal history of blood clots Only familial history was her grandfather who may have had a DVT. She does not take any oral contraceptives. She does not smoke. No recent trauma, surgery, or prolonged travel. No known malignancy. She is fairly active, she has five children. States that she is not currently . Reports that the shortness of breath started approximately 2 weeks ago. It is worse with exertion or lying flat. She also admits right pleurtic back pain and left leg "cramping". Left foot may have been swollen. She does report a minimally productive cough and low grade fevers. Denies hemoptysis. She did go to a urgent care clinic on May 27, and was diagnosed with acute bronchitis. she was also seen multiple times in the emergency room at outside facility for shortness of breath. Yesterday, she was following up with her primary care provider, was found to be hypoxic, and she was sent back to the emergency room. A CT angio of the chest demonstrated multiple bilateral segmental and subsegmental pulmonary emboli. There were also multiple bilateral pulmonary opacities with lower lobe predominance concerning for possible infarcts/christie hump sign or atelectasis. No CT evidence of right heart strain. BNP not elevated. CBC done at outside facility showed a white count of 16.2, hemoglobin 14.6, hematocrit 45.2, platelets 290. BMP shows sodium 138, potassiu m 3.5, chloride 101, serum bicarb 25, BUN 15, creatinine 0.8, glucose 94. Patient is currently lying in bed, on 4 L per nasal cannula, in no acute distress while at rest. High-intensity heparin is infusing per protocol. No sign of hemodynamic compromise. Heart rhythm appears normal sinus on bedside monitor with a rate of 70 bpm. Blood pressure is normotensive. Patient will be admitted to the cardiac stepdown unit. The patient is seen today 06/07/2023 in follow-up on the selective care unit. She is currently sitting up in bed. Awake and alert in no acute distress. She denies any worsening shortness of breath, cough or congestion. No chest pain. No hemoptysis. Maintaining O2 saturations in the 90s on 2 L/m per nasal cannula. Doppler of the lower extremities was positive for DVT of the left. She has normal saline at 75 ML's per hour. Continued on a heparin drip. White count 15.3. Hemoglobin 14.1. Platelets 297. Troponin negative 1. Objective - Vital Signs Vital signs: Vital Signs Temp 98.2 F 06/07/23 08:00 Pulse 75 06/07/23 12:17 Resp 18 06/07/23 08:00 BP 110/69 06/07/23 08:00 Pulse Ox 90 L 06/07/23 08:34 FiO2 Intake & Output 06/06/23 06/07/23 06/07/23 18:59 06:59 18:59 Intake Total 207.767 248.4 Balance 207.767 248.4 Weight 151.046 kg Intake: Intake, IV Titration 207.767 248.4 Amount Heparin Sod,Pork in 0.45% 207.767 248.4 NaCl 25,000 unit In 0.45 % NaCl 1 250ml.bag @ 15. 227 UNITS/KG/HR 23 mls/hr IV .[id number] [facility] Rx#: [id number] Other: Voiding Method Toilet Toilet # Voids 1 - Exam GENERAL EXAM: Alert, pleasant, morbidly obese 32-year-old female, on 2 L nasal cannula, comfortable in no apparent distress. HEAD: Normocephalic and atraumatic EYES: Normal reaction of pupils, equal size. NOSE: Clear with pink turbinates. THROAT: No erythema or exudates. NECK: No masses, no JVD. CHEST: No chest wall deformity. LUNGS: Equal air entry with no crackles, wheeze, rhonchi or dullness. No conversational dyspnea. CVS: S1 and S2 normal with no audible murmur, regular rhythm. No extra heart sounds ABDOMEN: No hepatosplenomegaly, active bowel sounds, no guarding or rigidity. SPINE: No scoliosis or deformity SKIN: No rashes CENTRAL NERVOUS SYSTEM: No focal deficits, tone is normal in all 4 extremities. EXTREMITIES: There is no peripheral edema, clubbing, or cyanosis. Peripheral pulses are intact. - Labs CBC & Chem 7: 06/06/23 02:47 06/06/23 02:43 Labs: Abnormal Lab Results - Last 24 Hours (Table) 06/07/23 Range/Units 05:31 APTT 64.5 H (22.0-30.0) sec Assessment and Plan Assessment: Bilateral acute segmental and subsegmental pulmonary emboli, first occurrence, non-provoked, no CT evidence of right-sided heart strain. On chest CTA, there were multiple bilateral opacities with lower lobe predominance concerning for possible pulmonary infarcts/christie hump sign. Left lower extremity DVT Acute hypoxemic respiratory failure, secondary to above Hypertension Morbid obesity, with a BMI of 53.7 kg/m Plan: The patient was seen and evaluated Medications and labs reviewed Currently on a heparin drip We'll transition to Eliquis Recommend lifelong anticoagulation Cleared for discharge from the pulmonary standpoint Follow-up in the office in 1 week I have personally seen and examined the patient, performed the documentation and the assessment and plan as written. Number of minutes spent on the visit: 10.
[2023-06-07] MEDS: SODIUM CHLORIDE 0.9% 1,000 ML IV SCH ×2 (13:10→14:17)
--- NOTE | 2023-06-07 14:00 | CA ---
Transthoracic Echo Report Name: Nettie Bailey Age: 32 Gender: F : 1990 Exam Date: 06/06/2023 13:23 Exam Location: [facility] Ht (in): 66 Wt (lb): 333 Ordering Physician: Charla Barroso Attending/Referring Phys: Running Rigger Nataliia Osborne RDCS Procedure CPT: Indications: PE Cardiac Hx: Technical Quality: Technically difficult study Contrast 1: Definity Total Dose (mL): 2 Contrast 2: Total Dose (mL): MEASUREMENTS (Male / Female) Normal Values 2D ECHO LV Diastolic Diameter PLAX 4.0 cm 4.2 - 5.9 / 3.9 - 5.3 cm LV Systolic Diameter PLAX 2.1 cm IVS Diastolic Thickness 1.5 cm 0.6 - 1.0 / 0.6 - 0.9 cm LVPW Diastolic Thickness 1.4 cm 0.6 - 1.0 / 0.6 - 0.9 cm LV Relative Wall Thickness 0.7 RV Internal Dim ED PLAX 2.4 cm LA Volume 44.8 cm??? 18 - 58 / 22 - 52 cm??? LA Volume Index 16.3 cm???/m??? 16 - 28 cm???/m??? M-MODE Aortic Root Diameter MM 2.6 cm LA Systolic Diameter MM 3.4 cm LA Ao Ratio MM 1.3 AV Cusp Separation MM 2.0 cm DOPPLER AV Peak Velocity 149.7 cm/s AV Peak Gradient 9.0 mmHg AV Mean Velocity 100.2 cm/s AV Mean Gradient 4.5 mmHg AV Velocity Time Integral 25.9 cm LVOT Peak Velocity 95.0 cm/s LVOT Peak Gradient 3.6 mmHg LVOT Velocity Time Integral 17.6 cm MV Area PHT 4.6 cm??? Mitral E Point Velocity 85.8 cm/s Mitral A Point Velocity 65.9 cm/s Mitral E to A Ratio 1.3 MV Deceleration Time 163.9 ms MV E' Velocity 8.7 cm/s Mitral E to MV E' Ratio 9.9 TR Peak Velocity 169.8 cm/s TR Peak Gradient 11.5 mmHg Right Ventricular Systolic Press 16.5 mmHg FINDINGS Left Ventricle Moderately increased left ventricular wall thickness. Left ventricular cavity size normal. Normal left ventricular systolic function with no obvious regional wall motion abnormalities. Left ventricular ejection fraction is estimated at 55-60 %. Right Ventricle Normal right ventricular size and function. Right ventricular systolic pressure within normal limits. Right Atrium Normal right atrial size. Left Atrium Normal left atrial size. Mitral Valve No mitral stenosis, regurgitation or prolapse. Aortic Valve No aortic valve stenosis or regurgitation. Tricuspid Valve Mild tricuspid regurgitation. Pulmonic Valve Pulmonic valve not well visualized. Pericardium No pericardial effusion. Aorta Normal size aortic root and proximal ascending aorta. CONCLUSIONS Normal LV systolic function Previewed by: Dr. Michael Saenz MD (Electronically Signed) Final Date: 07 June 2023 13:59
--- NOTE | 2023-06-07 14:18 | P.PN ---
Subjective Progress Note Date: 06/07/23 patient is a 32-year-old lady with past medical history significant for h ypertension who presented to the ER as a transfer from [facility] for evaluation for bilateral PE. Patient was admitted in the hospital recently for cough and shortness of breath, but left AMA because of family issues. Patient was discharged on antibiotics but was having no improvement. Patient stated that shortness of breath is going on for the last 2 weeks and is present exertion and at rest. Denied any chest pain. There was no complain of palpitation. Patient also complaining of right-sided back pain. Patient also stated that she did notice that her left leg was swollen Patient went to her PCP office where she was found to be saturating in the low 90s and high 80s and was told to come to the ER. Patient was sent from [facility]. A CT angio of the chest demonstrated multiple bilateral segmental and subsegmental pulmonary emboli. There were also multiple bilateral pulmonary opacities with lower lobe predominance concerning for possible infarcts/christie hump sign or atelectasis. No CT evidence of right heart strain. BNP not elevated. Patient was started on pharmacy dose heparin and was transferred to [facility] Initial lab work done in the ER showed WBC 15.3, hemoglobin 14.1, platelet count 297, sodium 139, potassium 4.1, BUNs 14, creatinine 0.63, glucose 120, troponin 0.012 Patient was admitted to medicine service 06/07. Patient seen and examined. Currently on 1 L of oxygen. Gets short of breath on exertion. Heparin discontinued, switch to Eliquis REVIEW OF SYSTEMS: CONSTITUTIONAL: No fever, no malaise,. CARDIOVASCULAR: No chest pain, no palpitations, no syncope. PULMONARY: No shortness of breath, no cough, GASTROINTESTINAL: No diarrhea, no nausea, no vomiting, no abdominal pain. NEUROLOGICAL: No headaches, no weakness, PHYSICAL EXAMINATION: GENERAL: The patient is alert and oriented x3, not in any acute distress. Well developed, well nourished. HEENT: Pupils are round and equally reacting to light. EOMI. No scleral icterus. No conjunctival pallor. Normocephalic, atraumatic. No pharyngeal erythema. No thyromegaly. CARDIOVASCULAR: S1 and S2 present. No murmurs, rubs, or gallops. PULMONARY: Chest is clear to auscultation, no wheezing or crackles. ABDOMEN: Soft, nontender, nondistended, normoactive bowel sounds. No palpable organomegaly. MUSCULOSKELETAL: No joint swelling or deformity. EXTREMITIES: No cyanosis, clubbing, or pedal edema. NEUROLOGICAL: Gross neurological examination did not reveal any focal deficits. SKIN: No rashes. Assessment and plan Acute bilateral PE Bilateral pulmonary infarct Left lower extremity DVT Acute hypoxic respiratory failure Hypertension Morbid obesity Monitor vital signs Monitor CBC Monitor CMP Continue telemetry monitoring Continue to wean down oxygen Encourage use of incentive spirometer Continue breathing treatments DC heparin, started patient on Eliquis Follow-up on 2-D echo Pulmonary following Hematology oncology following In regards to hypertension ,continue Norvasc Labs and medication were reviewed.. Continue same treatment. Continue with symptomatic treatment. Resume home medication. Monitor labs and vitals. DVT and GI prophylaxis. Further recommendations as per clinical course of the patient Dictation was produced using [employer] dictation software. please excuse any grammatical, word or spelling errors. Objective - Vital Signs Vital signs: Vital Signs Temp 97.8 F 06/07/23 03:23 Pulse 75 06/07/23 08:39 Resp 16 06/07/23 03:23 BP 106/69 06/07/23 03:23 Pulse Ox 90 L 06/07/23 08:34 FiO2 Intake & Output 06/06/23 06/07/23 06/07/23 18:59 06:59 18:59 Intake Total 207.767 248.4 Balance 207.767 248.4 Weight 151.046 kg Intake: Intake, IV Titration 207.767 248.4 Amount Heparin Sod,Pork in 0.45% 207.767 248.4 NaCl 25,000 unit In 0.45 % NaCl 1 250ml.bag @ 15. 227 UNITS/KG/HR 23 mls/hr IV .[id number] [facility] Rx#: [id number] Other: Voiding Method Toilet # Voids 1 - Labs CBC & Chem 7: 06/06/23 02:47 06/06/23 02:43 Labs: Abnormal Lab Results - Last 24 Hours (Table) 06/07/23 Range/Units 05:31 APTT 64.5 H (22.0-30.0) sec
[2023-06-08] MEDS: SODIUM CHLORIDE 0.9% 1,000 ML IV SCH (02:07)
[2023-06-08 04:07] VITALS: RESP 17; TEMP 98.5
[2023-06-08 06:20] LABS: Basophils # (A) 0.1 k/uL (0-0.2); Basophils % (A) 1 %; Eosinophils # (A) 0.3 k/uL (0-0.7); Eosinophils % (A) 3 %; HCT 43.9 % (34.0-46.0); HGB 13.9 gm/dL (11.4-16.0); Lymphocytes # (A) 2.8 k/uL (1.0-4.8); Lymphocytes % (A) 27 %; MCH 25.8 pg (25.0-35.0); MCHC 31.7 g/dL (31.0-37.0); MCV 81.5 fL (80.0-100.0); Mean Platelet Volume 7.5; Monocytes # (A) 0.6 k/uL (0-1.0); Monocytes % (A) 6 %; Neutrophils # (A) 6.6 k/uL (1.3-7.7); Neutrophils % (A) 62 %; Platelet Count 262 k/uL (150-450); RBC 5.38 m/uL (3.80-5.40); RDW 13.9 % (11.5-15.5); WBC 10.6 k/uL (3.8-10.6)
[2023-06-08 08:25] VITALS: BP 142/85
[2023-06-08 08:39] LABS: ALT 138 U/L (8-44); AST 55 U/L (13-35); Albumin 3.8 g/dL (3.8-4.9); Albumin/Globulin Ratio 1.27 Ratio (1.60-3.17); Alkaline Phosphatase 61 U/L (41-126); Blood Urea Nitrogen 9.8 mg/dL (9.0-27.0); Calcium 8.8 mg/dL (8.7-10.3); Carbon Dioxide 23.7 mmol/L (21.6-31.8); Chloride 103 mmol/L (96-109); Glucose 102 mg/dL (70-110); Potassium 4.3 mmol/L (3.5-5.5); Sodium 137 mmol/L (135-145); Total Bilirubin 0.8 mg/dL (0.3-1.2); Total Protein 6.8 g/dL (6.2-8.2)
[2023-06-08] MEDS: amLODIPine 5 MG TAB PO SCH (08:40)
[2023-06-08] MEDS: Apixaban Initiation Dose--VTE 5 MG TAB PO SCH (08:40)
[2023-06-08] MEDS: ALBUTEROL NEBULIZED 2.5 MG/3 ML INHALATION SCH (09:31)
[2023-06-08 09:43] VITALS: PULSE 74
--- NOTE | 2023-06-08 12:28 | P.DS ---
Providers Date of admission: 06/05/23 21:05 Expected date of discharge: 06/08/23 Attending physician: Danielle Lyon Consults: 06/05/23 20:24 Consult Physician Stat Consulting Provider: Eugenio Jones Consult Reason/Comments: bilateral PEs Do you want consulting provider notified?: Yes 06/06/23 08:55 Consult Physician Routine Consulting Provider: Federico Null Consult Reason/Comments: bilateral PE Do you want consulting provider notified?: Yes Primary care physician: Eduard Kinsey Hospital Course: Discharge diagnoses; Acute bilateral PE Bilateral pulmonary infarct Left lower extremity DVT Acute hypoxic respiratory failure Hypertension Morbid obesity Hospital course; patient is a 32-year-old lady with past medical history significant for hypertension who presented to the ER as a transfer from [facility] for evaluation for bilateral PE. Patient was admitted in the hospital recently for cough and shortness of breath, but left AMA because of family issues. Patient was discharged on antibiotics but was having no improvement. Patient stated that shortness of breath is going on for the last 2 weeks and is present exertion and at rest. Denied any chest pain. There was no complain of palpitation. Patient also complaining of right-sided back pain. Patient also stated that she did notice that her left leg was swollen Patient went to her PCP office where she was found to be saturating in the low 90s and high 80s and was told to come to the ER. Patient was sent from [facility]. A CT angio of the chest demonstrated multiple bilateral segmental and subsegmental pulmonary emboli. There were also multiple bilateral pulmonary opacities with lower lobe predominance concerning for possible infarcts/christie hump sign or atelectasis. No CT evidence of right heart strain. BNP not elevated. Patient was started on pharmacy dose heparin and was transferred to [facility] Initial lab work done in the ER showed WBC 15.3, hemoglobin 14.1, platelet count 297, sodium 139, potassium 4.1, BUNs 14, creatinine 0.63, glucose 120, troponin 0.012 Patient was admitted to medicine service 06/07. Patient seen and examined. Currently on 1 L of oxygen. Gets short of breath on exertion. Heparin discontinued, switch to Eliquis 06/08. Patient seen and examined. Patient has been weaned off the oxygen. Being discharged on Eliquis 10 mg twice a day for 7 days followed by 5 twice a day, patient is Eliquis for life. Patient is status post 3 doses of 10 mg in the hospital. Patient is being discharged on Norvasc for blood pressure control. Patient to follow up outpatient with pulmonology and hematology oncology PHYSICAL EXAMINATION: GENERAL: The patient is alert and oriented x3, not in any acute distress. Morbidly obese HEENT: Pupils are round and equally reacting to light. EOMI. No scleral icterus. No conjunctival pallor. Normocephalic, atraumatic. No pharyngeal erythema. No thyromegaly. CARDIOVASCULAR: S1 and S2 present. No murmurs, rubs, or gallops. PULMONARY: Chest is clear to auscultation, no wheezing or crackles. ABDOMEN: Soft, nontender, nondistended, normoactive bowel sounds. No palpable organomegaly. MUSCULOSKELETAL: No joint swelling or deformity. EXTREMITIES: No cyanosis, clubbing, or pedal edema. NEUROLOGICAL: Gross neurological examination did not reveal any focal deficits. SKIN: No rashes. Dictation was produced using [employer] dictation software. please excuse any grammatical, word or spelling errors. Patient Condition at Discharge: Stable Plan - Discharge Summary Discharge Rx Participant: No New Discharge Prescriptions: New amLODIPine [Norvasc] 5 mg PO DAILY 30 Days #30 tab Apixaban [Eliquis Starter Pack (for VTE)] 5 - 10 mg PO DIRECTED 30 Days #1 each Continue Benzonatate [Tessalon Perles] 100 - 200 mg PO TID PRN PRN Reason: Cough guaiFENesin [Mucinex] 600 mg PO Q12H PRN PRN Reason: Cough Albuterol Inhaler [Ventolin Hfa Inhaler] 1 - 2 puff INHALATION RT-Q6H PRN PRN Reason: Shortness Of Breath Albuterol Nebulized [Ventolin Nebulized] 2.5 mg INHALATION RT-TID Discontinued methylPREDNISolone Dose Pack [Medrol Dose Pack] See Taper PO DIRECTED Discharge Medication List Albuterol Inhaler [Ventolin Hfa Inhaler] 1 - 2 puff INHALATION RT-Q6H PRN 06/05/23 [History] Albuterol Nebulized [Ventolin Nebulized] 2.5 mg INHALATION RT-TID 06/05/23 [History] Benzonatate [Tessalon Perles] 100 - 200 mg PO TID PRN 06/05/23 [History] guaiFENesin [Mucinex] 600 mg PO Q12H PRN 06/05/23 [History] Apixaban [Eliquis Starter Pack (for VTE)] 5 - 10 mg PO DIRECTED 30 Days #1 each 06/08/23 [Rx] amLODIPine [Norvasc] 5 mg PO DAILY 30 Days #30 tab 06/08/23 [Rx] Follow up Appointment(s)/Referral(s): Frank Bran MD [STAFF PHYSICIAN] - 06/15/23 2:30 pm Federico Null [STAFF PHYSICIAN] - 1 Week (Please call the office on Sunday to schedule a follow up appointment) Eduard Kinsey MD [Primary Care Provider] - 1-2 days (please call the office Sunday to schedule a follow up appointment.) Discharge Disposition: HOME SELF-CARE
--- NOTE | 2023-06-08 12:28 | P.PN ---
Subjective Progress Note Date: 06/08/23 I am seeing this patient in consultation today 06/06/2023 in the emergency room after the patient was found to have bilateral pulmonary emboli at outside facility and transferred for treatment. Patient is a 32-year-old white female with limited past medical history. She is morbidly obese. Denies any previous personal history of blood clots Only familial history was her grandfather who may have had a DVT. She does not take any oral contraceptives. She does not smoke. No recent trauma, surgery, or prolonged travel. No known malignancy. She is fairly active, she has five children. States that she is not currently . Reports that the shortness of breath started approximately 2 weeks ago. It is worse with exertion or lying flat. She also admits right pleurtic back pain and left leg "cramping". Left foot may have been swollen. She does report a minimally productive cough and low grade fevers. Denies hemoptysis. She did go to a urgent care clinic on May 27, and was diagnosed with acute bronchitis. she was also seen multiple times in the emergency room at outside facility for shortness of breath. Yesterday, she was following up with her primary care provider, was found to be hypoxic, and she was sent back to the emergency room. A CT angio of the chest demonstrated multiple bilateral segmental and subsegmental pulmonary emboli. There were also multiple bilateral pulmonary opacities with lower lobe predominance concerning for possible infarcts/christie hump sign or atelectasis. No CT evidence of right heart strain. BNP not elevated. CBC done at outside facility showed a white count of 16.2, hemoglobin 14.6, hematocrit 45.2, platelets 290. BMP shows sodium 138, potassiu m 3.5, chloride 101, serum bicarb 25, BUN 15, creatinine 0.8, glucose 94. Patient is currently lying in bed, on 4 L per nasal cannula, in no acute distress while at rest. High-intensity heparin is infusing per protocol. No sign of hemodynamic compromise. Heart rhythm appears normal sinus on bedside monitor with a rate of 70 bpm. Blood pressure is normotensive. Patient will be admitted to the cardiac stepdown unit. The patient is seen today 06/07/2023 in follow-up on the selective care unit. She is currently sitting up in bed. Awake and alert in no acute distress. She denies any worsening shortness of breath, cough or congestion. No chest pain. No hemoptysis. Maintaining O2 saturations in the 90s on 2 L/m per nasal cannula. Doppler of the lower extremities was positive for DVT of the left. She has normal saline at 75 ML's per hour. Continued on a heparin drip. White count 15.3. Hemoglobin 14.1. Platelets 297. Troponin negative 1. The patient is seen today 06/08/2023 in follow-up on the regular medical floor. She is currently sitting up in bed. Awake and alert in no acute distress. She denies any worsening shortness of breath, cough or congestion. No hemoptysis. No chest pain. She's been afebrile. Maintaining O2 saturations in the 90s on room air. White count 10.6. Hemoglobin 13.9. Platelets 262. Sodium 137. Potassium 4.3. Bicarb 24. BUN 10. Creatinine 0.7. AST 55. ALT 138. She is continued on albuterol. Anticoagulated with Eliquis. Objective - Vital Signs Vital signs: Vital Signs Temp 98.5 F 06/08/23 08:00 Pulse 74 06/08/23 09:42 Resp 17 06/08/23 08:00 BP 142/85 06/08/23 08:00 Pulse Ox 95 06/08/23 11:47 FiO2 Intake & Output 06/07/23 06/08/23 06/08/23 18:59 06:59 18:59 Intake Total 75 Balance 75 Intake: Intake, IV Titration 75 Amount Sodium Chloride 0.9% 1, 75 000 ml @ 75 mls/hr IV . [id number] [facility] Rx#:[id number] Other: Voiding Method Toilet Toilet # Voids 1 1 - Exam GENERAL EXAM: Alert, pleasant, obese 32-year-old female, on room air, in no apparent distress. HEAD: Normocephalic and atraumatic EYES: Normal reaction of pupils, equal size. NOSE: Clear with pink turbinates. THROAT: No erythema or exudates. NECK: No masses, no JVD. CHEST: No chest wall deformity. LUNGS: Equal air entry with no crackles, wheeze, rhonchi or dullness. CVS: S1 and S2 normal with no audible murmur, regular rhythm. No extra heart sounds ABDOMEN: No hepatosplenomegaly, active bowel sounds, no guarding or rigidity. SPINE: No scoliosis or deformity SKIN: No rashes CENTRAL NERVOUS SYSTEM: No focal deficits, tone is normal in all 4 extremities. EXTREMITIES: There is no peripheral edema, clubbing, or cyanosis. Peripheral pulses are intact. - Labs CBC & Chem 7: 06/08/23 05:49 06/08/23 05:49 Labs: Abnormal Lab Results - Last 24 Hours (Table) 06/08/23 Range/Units 05:49 AST 55 H (13-35) U/L ALT 138 H (8-44) U/L Albumin/Globulin Ratio 1.27 L (1.60-3.17) Ratio Assessment and Plan Assessment: Bilateral acute segmental and subsegmental pulmonary emboli, first occurrence, non-provoked, no CT evidence of right-sided heart strain. On chest CTA, there were multiple bilateral opacities with lower lobe predominance concerning for possible pulmonary infarcts/christie hump sign. Initiated on Lasix Left lower extremity DVT Acute hypoxemic respiratory failure, secondary to above Hypertension Morbid obesity, with a BMI of 53.7 kg/m Plan: The patient was seen and evaluated Medications and labs reviewed Currently on Eliquis Recommend lifelong anticoagulation Oxygen has been weaned off Cleared for discharge Follow-up in the office in 1 week This patient was seen independently by the nurse practitioner I have personally seen and examined the patient, performed the documentation and the assessment and plan as written. Number of minutes spent on the visit: 22.
== END 2023-06-08 12:11 | disposition home or self-care (01) | DRG 134 ==
LOC: EC 19:40 → 3SCARD 21:05 → 5NMEDONC 06-07 12:31
PROVIDERS: ADMIT Hospitalist; ATTEND Hospitalist
DX: I26.94 Multiple subsegmental thrombotic pulmonary emboli without acute cor pulmonale (principal); J96.01 Acute respiratory failure with hypoxia; I82.432 Acute embolism and thrombosis of left popliteal vein; Z68.43 Body mass index [BMI] 50.0-59.9, adult; E66.01 Morbid (severe) obesity due to excess calories; I10 Essential (primary) hypertension; J20.9 Acute bronchitis, unspecified; J44.0 Chronic obstructive pulmonary disease with (acute) lower respiratory infection; Z53.29 Procedure and treatment not carried out because of patient's decision for other reasons; Z79.01 Long term (current) use of anticoagulants; Z88.1 Allergy status to other antibiotic agents; Z88.0 Allergy status to penicillin
CPT/HCPCS: 36415; 80048; 80053; 84484; 85025; 85610; 85730; 93306; 94640; 94760; 96365; 96366; 96375; 99285

== ENCOUNTER → 2023-08-17 | Outpatient (CLI) | payer OTHER ==
--- NOTE | 2023-08-17 14:29 | US ---
EXAMINATION TYPE: US venous doppler duplex LE BI DATE OF EXAM: 08/17/2023 2:18 PM COMPARISON: 06/06/23 CLINICAL INDICATION: Female, 32 years old with history of I82.5Z9 DEEP VEIN THROMBOSIS; HX of DVT in rt pop/calf veins, left small saph, and PE in 2022. Patient on blood thinners since then. Patient no longer having any pain, warmth, or swelling. SIDE PERFORMED: Bilateral TECHNIQUE: The lower extremity deep venous system is examined utilizing real time linear array sonog brynn with graded compression, doppler sonography and color-flow sonography. VESSELS IMAGED: Common Femoral Vein Deep Femoral Vein Greater Saphenous Vein * Femoral Vein Popliteal Vein Small Saphenous Vein * Proximal Calf Veins (* superficial vessels) Extremely limited due to patient body habitus Right Leg: Negative for DVT Left Leg: Negative for DVT IMPRESSION: Grayscale, color doppler, spectral doppler imaging performed of the deep veins of the lo wer extremities. There is normal flow, compressibility, vascular waveforms.
== END | disposition home or self-care (01) ==
LOC: RADUSWWP 13:31
PROVIDERS: ATTEND Internal Medicine Hematology & Oncology
DX: I82.5Z9 Chronic embolism and thrombosis of unspecified deep veins of unspecified distal lower extremity (principal); I26.99 Other pulmonary embolism without acute cor pulmonale; D68.59 Other primary thrombophilia; I10 Essential (primary) hypertension; Z79.01 Long term (current) use of anticoagulants
CPT/HCPCS: 93970

== ENCOUNTER → 2025-01-07 | Outpatient (CLI) | payer OTHER ==
[2025-01-07 13:40] VITALS: BP 149/85; PULSE 83; RESP 16; TEMP 98.2; BMI 56.1
--- NOTE | 2025-01-07 14:26 | P.HPBAR ---
Bariatric H&P - History & Physicial H&P Date: 01/07/25 History & Physicial: Visit/CC: new pt Patient initial contact: Initial weight: 150.621 kg Initial weight in pounds: 332.06 Height: 5 ft 4.5 in Initial BMI: 56.1 Last weight: Current weight: 150.621 kg Current weight in pounds: 332.06 Current BMI: 56.1 [place] body weight (based on NIH guidelines): 55.85 kg Excess body weight loss: 0.0% The patient is a 34 year-old F who presents for Bariatric Assessment. Patient presents for the first time at bariatric center. She reports having polycystic ovarian syndrome. Her sister also has similar syndrome. Patient is to take medications of the [place] for weight loss and loss 50 pounds. She reports all her family members have troubles with weight loss. Separately she has tried high-protein diet with at [place] 20 pound weight loss and has regained. She presents with her highest weight today at 332 pounds down. No prior abdominal surgeries. She still has her gallbladder. She reports having a pulmonary embolism 2 years ago and was diagnosed with factor V Leiden. Patient is on a blood thinner as a result. No prior upper endoscopy. Denies any back pain hip pain knee pain ankle pain. Has obstructive sleep apnea. Has hypertensive heart disease. Again has polycystic ovarian syndrome. Full bariatric labs advised. She denies any gastrointestinal malignancies she has a family history of lung cancer as her grandmother smoked much. Recommend upper endoscopy. Recommend full bariatric metabolic labs. Patient is open to all procedures. Patient is high risk due to. Active blood thinners. Past Medical History Past Medical History: Deep Vein Thrombosis (DVT), Skin Disorder Additional Past Medical History / Comment(s): PCOS-IRREGULAR MENSES, darker pigment in areas of skin, bilat PE, left leg DVT History of Any Multi-Drug Resistant Organisms: None Reported Past Surgical History: Orthopedic Surgery Additional Past Surgical History / Comment(s): left and right carpal tunnel 03/2018 Past Anesthesia/Blood Transfusion Reactions: No Reported Reaction Additional Past Anesthesia/Blood Transfusion Reaction / Comm: NO PRIOR SURGICAL HX Past Psychological History: No Psychological Hx Reported Smoking Status: Never smoker Past Alcohol Use History: None Reported Past Drug Use History: None Reported - Past Family History Mother Family Medical History: No Reported History Surgical - Exam Vital Signs Temp Pulse Resp BP 98.2 F 83 16 149/85 01/07/25 13:33 01/07/25 13:33 01/07/25 13:33 01/07/25 13:33 Bariatric Checklist Checklist: Plan: Checklist: EGD: 1. Hiatal hernia: 2. H. Pylori: HgbA1c: Vitamin D: Smoking: Never smoker Primary care physician referral: Mavis Castellon Psychiatry clearance: Cardiology clearance: Sleep study: Diet journal: VTE risk score: VTE risk level: Rehab needs at discharge:
[2025-01-07 15:21] LABS: Partial Thromboplastin Time 24.5 sec (22.0-30.0); Prothrombin Time 10.6 sec (10.0-12.5)
[2025-01-07 19:36] LABS: HCT 44.3 % (37.2-46.3); HGB 13.6 g/dL (12.0-15.0); MCHC 30.7 g/dL (32.0-37.0); MCV 81.3 FL (80.0-97.0); Mean Platelet Volume 10.3 FL (9.5-12.2); NRBC Per 100 WBC 0 X 10*3/uL (0.00-0.01); Platelet Count 397 X 10*3/uL (140-440); RBC 5.45 X 10*6/uL (4.10-5.20); RDW 13.6 % (11.5-14.5); WBC 10.42 X 10*3/uL (4.50-10.00)
[2025-01-07 20:06] LABS: BUN/Creat Ratio 15.14 Ratio (12.00-20.00); Blood Urea Nitrogen 10.6 mg/dL (9.0-27.0); Chloride 105 mmol/L (96-109); Chol/HDL Ratio 4.28 Ratio; Glucose 113 mg/dL (70-110); Iron 40 UG/DL (50-170); LDL Cholesterol,Calculated 123.7 mg/dL (0.0-131.0); Magnesium 1.9 mg/dL (1.5-2.4); Phosphorus 3.6 mg/dL (2.4-5.1); Potassium 3.8 mmol/L (3.5-5.5); Sodium 141 mmol/L (135-145); Total Iron Binding Capacity 342 UG/DL (228-460)
[2025-01-07 20:07] LABS: ALT 25 U/L (8-44); AST 20 U/L (13-35); Albumin 4.1 g/dL (3.8-4.9); Albumin/Globulin Ratio 1.46 Ratio (1.60-3.17); Alkaline Phosphatase 64 U/L (41-126); Calcium 8.9 mg/dL (8.7-10.3); Carbon Dioxide 24.7 mmol/L (21.6-31.8); Ferritin 79.5 ng/mL (10.0-291.0); Globulin 2.8 g/dL (1.6-3.3); Total Bilirubin 0.3 mg/dL (0.3-1.2); Total Protein 6.9 g/dL (6.2-8.2)
[2025-01-07 22:12] LABS: Prealbumin 18.8 mg/dL (18.0-42.0)
[2025-01-08 10:57] LABS: Zinc, Serum 79 ug/dL (60-130)
[2025-01-09 06:11] LABS: Vitamin A 34 ug/dL (38-106)
== END ==
LOC: BARWHC3 13:22
PROVIDERS: ATTEND Surgery Plastic and Reconstructive Surgery
DX: E66.01 Morbid (severe) obesity due to excess calories (principal); D50.8 Other iron deficiency anemias; K91.2 Postsurgical malabsorption, not elsewhere classified; E44.1 Mild protein-calorie malnutrition; E45 Retarded development following protein-calorie malnutrition; E55.9 Vitamin D deficiency, unspecified; K74.1 Hepatic sclerosis; N19 Unspecified kidney failure; T56.894A Toxic effect of other metals, undetermined, initial encounter; K50.90 Crohn's disease, unspecified, without complications; Z88.0 Allergy status to penicillin; Z88.1 Allergy status to other antibiotic agents; Z68.43 Body mass index [BMI] 50.0-59.9, adult
CPT/HCPCS: 80053; 80061; 80307; 80323; 82525; 82607; 82728; 82746; 83540; 83550; 83735; 83970; 84100; 84134; 84255; 84425; 84443; 84590; 84630; 85027; 85610; 85730; 99212